=== PATIENT | female | born 1950 | race African-American/Black ===

== ENCOUNTER 2016-11-29 11:59 | Emergency (ER) | payer MEDICAID ==
[~2016-11-29] VITALS: Ht 167.6 cm; Wt 178.0 kg
[~2016-11-29 11:59] MED LIST: AMLO10TA80 PO; ASPI325T2 PO; ATOR20TA PO; HYDR-4134 PO; METF500T4 PO
[2016-11-29 12:07] VITALS: BP 190/103
[2016-11-29] MEDS ORDERED: METOPROLOL TARTRATE 50MG TABLET PO ONE (13:15)
[2016-11-29] MEDS ORDERED: LISINOPRIL 20MG TABLET PO ONE (13:15)
== END 2016-11-29 15:27 | disposition home or self-care (01) ==
LOC: ER 14:44
DX: Z76.0 Encounter for issue of repeat prescription (principal); I10 Essential (primary) hypertension; E11.9 Type 2 diabetes mellitus without complications; E78.00 Pure hypercholesterolemia, unspecified; Z79.4 Long term (current) use of insulin; Z79.899 Other long term (current) drug therapy; Z86.73 Personal history of transient ischemic attack (TIA), and cerebral infarction without residual deficits
CPT/HCPCS: 99283; Z7610